=== PATIENT | male | born 1975 | race Two or more races ===

== ENCOUNTER 2024-10-13 09:34 | Emergency (ER) | payer MEDICAID, SELFPAY ==
[2024-10-13 09:35] VITALS: BMI 33.6
--- NOTE | 2024-10-13 10:00 | XR_ITS ---
Examination: Wrist, right 3 views Technique: Wrist AP, oblique, lateral 3 views Date and time of exam: October 13, 2024 1022 hrs. Indications: Status post removal foreign body from the wrist Findings: No fracture. No current opaque foreign body Impression: No current opaque foreign body
[2024-10-13] MEDS: KETOROLAC INJ 60 MG/2 ML VIAL 30 MG IM (10:10)
[2024-10-13] MEDS: LIDOCAINE HCL 1% 20 ML VIAL INFL (10:11)
[2024-10-13] MEDS: DIPHTH,PERTUSS(ACELL),TET VAC 0.5 ML SYR- ADULT IMi (10:12)
[2024-10-13 10:19] VITALS: BP 146/99; RESP 72; TEMP 36.9; O2SAT 95
--- NOTE | 2024-10-13 10:45 | EDNOTE_ITS ---
ED Skin Abcess FB-RME/HPI General Chief complaint: Skin/Abscess/Foreign Body Stated complaint: SHOT R WRIST/NAIL GUN Time Seen by Provider: 10/13/24 09:43 Arrival date/time: 10/13/24 09:34 Limitations: no limitations RME / HPI RME / HPI narrative: 48 year old male with no significant medical history presents to the ED for evaluation of a nail embedded in his right wrist. The patient reports that while framing a fence with a nail gun, he lost control of the gun, causing the nail to penetrate his right wrist. He describes some numbness in the hand, but otherwise reports that strength and function are intact. The patient denies any other injuries or complaints. Patient does not recall when he last received his tetanus vaccine. Related Data Previous Rx's ?Medication ?Instructions ?Recorded amoxicillin 875 mg-potassium 1 tab PO BID #10 tabs clavulanate 125 mg tablet (Augmentin) hydrocodone 5 mg-acetaminophen 325 1 tab PO BID PRN pa in #10 tabs 12/14/20 mg tablet ibuprofen 800 mg tablet 800 mg PO TID PRN pain #30 t abs 12/14/20 Allergies Allergy/AdvReac Type Severity Reaction Status Date / Time No Known Allergies Allergy Verified 10/13/24 09:37 Review of Systems Review of Systems Systems Reviewed: All systems reviewed, normal except as documented Past Medical History Past Medical History NEUROLOGIC: Negative Neurological Disorders CARDIAC: Negative Cardiac Disorders or Congestive Heart Failure RESPIRATORY: Negative Chronic Obstructive Pulmonary Disease (COPD) GASTROINTESTINAL: Negative Gastrointestinal Disorders GENITOURINARY: Negative Genitourinary Disorders or Renal Disease MUSCULOSKELETAL: Negative Musculoskeletal Disorders ENDOCRINE: Negative Endocrine Disorders, Diabetes Mellitus Type 1 or Diabetes Mellitus Type 2 HEMATOLOGIC: Negative Blood Disorders Social History SMOKING STATUS: Never smoker ED Exam General Limitations: Present no limitations General appearance: Present alert and in no apparent distress Head Head exam: Present atraumatic, normocephalic and normal inspection Eye Eye exam: Present normal appearance and EOMI ENT ENT exam: Present normal exam and normal oropharynx Neck Neck exam: Present normal inspection and full ROM Chest Chest inspection: Present normal inspection and symmetric chest wall rise Respiratory Respiratory exam: Present normal lung sounds bilaterally Cardiovascular Cardiovascular exam: Present regular rate and normal rhythm Extremities Exam Extremities exam: Present full ROM and other (There is a nail penetrating the right wrist superficially. The tendons on the palmar side are intact, and strength is 5/5.) Back Exam Back exam: Present normal inspection and full ROM Neurological Exam Neurological exam: Present alert, oriented X3 and CN II-XII intact Psychiatric Psychiatric exam: Present normal affect and normal mood Skin Skin exam: Present warm, dry, intact and normal color Course Quality Measures none Orders Category Date Time Status Cleanse Wound NEEDED Care 10/13/24 10:02 Completed Splint / Immobilizer STAT Care 10/13/24 11:02 Completed TDap [Obtain Tdap Consent] X1 Care 10/13/24 10:00 Completed XR wrist comp RT min 3V Stat Exams 10/13/24 10:00 Completed Ketorolac Inj [Toradol Inj] Med 10/13/24 10:00 Discontinued 30 mg IM X1 ONE Lidocaine 1% 20 ml [Xylocaine 1% 20 ML] Med 10/13/24 09:47 Discontinued 20 ml .ROUTE .STK-MED ONE Lidocaine 1% 20 ml [Xylocaine 1% 20 ML] Med 10/13/24 10:00 Discontinued 20 ml INFL X1 ONE TET,DIP/PERT AC (Adult)-Tdap [Boostrix Adult (Tdap) Med 10/13/24 10:00 Dis continued Vacc] 0.5 ml IMI .ONCE ONE Vital Signs Vital signs: Vital Signs Temperature 98.5 F 10/13/24 10:19 Respiratory Rate 72 H 10/13/24 10:19 Blood Pressure 146/99 H 10/13/24 10:19 Pulse Oximetry (%) 95 10/13/24 10:19 Oxygen Delivery Method Room Air 10/13/24 10:19 Pulse ox is 95% on room air which is adequate. Procedures -ED Foreign Body Removal Time Out Performed: yes Site: right and upper extremity (wrist ) Description of foreign body: needle (Nail ) Sedation/Analgesia: none (6cc of Lidocaine 1% w/o epi was used) Technique: manual removal Confirmed by:: direct visualization and radiograph Complications: none Post-procedure exam: awake, alert, normal BP, normal HR and normal O2 sat Neurovascular: normal distal pulse, distal light touch sensation intact and distal motor function normal Skin / Abscess / Foreign Body MDM Narrative MDM Narrative:: [place] am scribing for and in the presence of Dr. Enrique. 1110: On reassessment, the patients numbness has completely resolved with exception of numbness to the tip of middle finger and tip of thumb. We reviewed treatment plans. Patient is amenable to discharge. Strict return precautions were outlined. Patient was discharged in stable condition. Patient data External records reviewed:: [facility] [place] previous records (I reviewed ED visit on 12/14/2020 for [facility]) Clinical information provided by:: patient Social determinants that could affect healthcare access:: none Patient has the following chronic illnesses:: None reported How is presenting disease/condition affected by chronic disease/condition?: no chronic disease Evaluation data The following diagnostics were reviewed and interpreted by me:: radiology exam(s) Lab and/or radiology exams considered but not ordered:: None Interpretation Summary: Traumatic injury with nail embedded in the right wrist. There was no tendon, vascular or nerve injury. The right hand had full range of motion and neurosensory intact Medications / Prescriptions Medications or Prescriptions considered but not ordered:: None Medication administrations:: Medication Administration History Discontinued Medications Diphtheria/Tetanus/Acell Pertussis (Diphth,Pertuss(Acell),Tet Vac 0.5 Ml Syr- Adult) 0.5 ml IMi .ONCE ONE Stop: 10/13/24 10:01 Last Admin: 10/13/24 10:12 Dose: 0.5 ml Documented By: JEANIE Ketorolac Tromethamine (Ketorolac Inj 60 Mg/2 Ml Vial) 30 mg IM X1 ONE Stop: 10/13/24 10:01 Last Admin: 10/13/24 10:10 Dose: 30 mg Documented By: JEANIE Lidocaine HCl (Lidocaine Hcl 1% 20 Ml Vial) Confirm Administered Dose 20 ml .ROUTE .STK-MED ONE Stop: 10/13/24 09:48 Last Admin: 10/13/24 10:13 Dose: Not Given Documented By: JEANIE Non-Admin Reason: Duplicate Medication on eMAR Lidocaine HCl (Lidocaine Hcl 1% 20 Ml Vial) 20 ml INFL X1 ONE Stop: 10/13/24 10:01 Last Admin: 10/13/24 10:11 Dose: 20 ml Documented By: JEANIE Comments: administered by MD Enrique for removal of foreign body See above Consultations Consultation(s) initiated? (list below): No Diagnosis Skin/Abscess Differential Diagnosis: other (traumatic nail injury, tendon injury, wrist trauma ) Most likely diagnosis given after review of the tests above:: Traumatic nail injury of right wrist Admission Indicated Admission indicated?: not indicated Admission Request Was there a request for admission?: No Disposition Plan Disposition Plan: Discharge Discharge Attestation Discharge Attestation: The patient and all family members were given an opportunity to ask questions and understood the discharge instructions. Discharge instructions specifically effects, indications for sooner follow up or return to the emergency department, and the expected course of current diagnosis. Patient condition: Stable Discharge Plan Plan Patient Disposition: HOME (Self Care) Prescriptions/Referrals Prescriptions/Med Rec: No Action amoxicillin-pot clavulanate [Augmentin] 875-125 mg tablet 1 tab PO BID Qty: 10 0RF ibuprofen 800 mg tablet 800 mg PO TID PRN (Reason: pain) Qty: 30 0RF hydrocodone-acetaminophen 5-325 mg tablet 1 tab PO BID MDD 10 PRN (Reason: pain) Qty: 10 0RF Problem List Clinical Impression: Traumatic injury of wrist Patient/Caregiver Discharge Instructions Additional Instructions: Follow-up with your primary care doctor in 3 for recheck. You can return to the emergency department sooner if symptoms worsen or if you notice any new, concerning issues. Consider neuralgia evaluation if numbness persists. For pain, take both 1-2 Tylenol 500mg tablets every 6 hours AND 2 Advil Gel 200mg capsules every 6 hours. Print Language: Tajik Stand Alone Forms: [employer] Award Info., Work/School Release, Patient Portal Info Letter
[2024-10-13 10:54] VITALS: BP 164/94; PULSE 62; RESP 16; TEMP 36.7; O2SAT 96
[2024-10-13 11:25] VITALS: BP 156/101; PULSE 62; RESP 18; TEMP 36.9; O2SAT 96
--- NOTE | 2024-10-13 11:42 | PC.NURSE ---
Patient came in to ED for nail to right wrist. 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 Patient had some numbness/ tingling to right hand. Dr. Enrique aware. removed nail with local lidocaine. Patient tolerated well. Patient given Tdap vaccine and informed consent was obtained. Patient given toradol for pain. Right wrist placed in splint and sling. Patient discharged on PO antibiotics and educated to follow up with PCP for right wrist and for high blood pressure.
== END 2024-10-13 11:30 | disposition home or self-care (01) ==
LOC: SERX 12:04
PROVIDERS: Emergency Provider Family Medicine
DX: S60.851A Superficial foreign body of right wrist, initial encounter (principal); W29.4XXA Contact with nail gun, initial encounter; Y93.89 Activity, other specified; Z23 Encounter for immunization
CPT/HCPCS: 29125; 73110; 90471; 90715; 96372; 99283; A4565; J1885; J3490